=== PATIENT | female | born 1960 | race Caucasian/White ===

== ENCOUNTER → 2017-01-17 | Outpatient (CLI) | payer OTHER ==
[~2017-01-17] MED LIST: ALBU1AER9 INH; DICL75TA2 PO; FLNIN NAE; FLVHFA220 PO; HYZ/50125 PO; LORA10TA5 PO; MONT1TAB3 PO; OMEP40CA36 PO; OMEP40CA41 PO
--- NOTE | 2017-01-18 15:13 | MAMMOGRAPHY REPORT ---
BILATERAL DIGITAL SCREENING MAMMOGRAM TOMOSYNTHESIS WITH CAD: 01/17/2017 CLINICAL HISTORY: Routine screening. Patient has no complaints. TECHNIQUE: Breast tomosynthesis in addition to standard 2D mammography was performed. Current study was also evaluated with a Computer Aided Detection (CAD) system. COMPARISON: Comparison is made to exams dated: 11/15/2014 mammogram, 09/26/2013 mammogram, 09/21/2012 m ammogram, 09/02/2011 mammogram, 08/31/2011 mammogram, and 08/10/2010 mammogram - [facility] nter. BREAST COMPOSITION: The tissue of both breasts is almost entirely fatty. FINDINGS: There are scattered stable benign rim and round calcifications in the breasts. No suspicio us mass, architectural distortion or cluster of suspicious microcalcifications is seen. IMPRESSION: ACR BI-RADS CATEGORY 1: NEGATIVE There is no mammographic evidence of malignancy. A 1 year screening mammogram is recommended. The pa tient will receive written notification of the results. Approximately 10% of breast cancers are not detected with mammography. A negative mammographic report should not delay biopsy if a clinically suggestive mass is present. Wen Carmona M.D. ay/:01/17/2017 21:00:42 [employer]: Shira MENSAH(Black)([place])([place]), [facility] letter sent: Normal 1/2 BI-RADS Code: ACR BI-RADS Category 1: Negative
== END | disposition home or self-care (01) ==
LOC: C.MAMM 14:25
PROVIDERS: ATTEND Family Medicine
DX: Z12.31 Encounter for screening mammogram for malignant neoplasm of breast (principal)

== ENCOUNTER 2017-01-26 05:37 | Emergency (ER) | payer OTHER ==
[~2017-01-26] VITALS: Ht 157.5 cm; Wt 121.5 kg
[~2017-01-26 05:37] MED LIST changes: -FLVHFA220 PO; -OMEP40CA41 PO
[2017-01-26 05:42] VITALS: TEMP 36.7; Ht 157.5 cm; Wt 121.5 kg
[2017-01-26] MEDS ORDERED: EPINEPHRINE ADULT AUTO-INJECT 0.3 MG SYR IM STA (05:48)
[2017-01-26] MEDS ORDERED: DiphenhydrAMINE HCL 50 MG/ML VIAL IV STA (05:48)
[2017-01-26] MEDS ORDERED: RANITIDINE HCL 50 MG/100 ML D5W IV STA (05:48)
[2017-01-26 05:50] VITALS: O2SAT 97
[2017-01-26] MEDS ORDERED: DEXAMETHASONE SOD INJ 10 MG/ML VIAL IV ONE (06:00)
--- NOTE | 2017-01-26 06:21 | EMERGENCY ROOM VISIT NOTE ---
History First contact with patient: 05:44 Chief Complaint: ALLERGIC REACTION Stated Complaint: ALLERGIC REACTION-TROUBLE SWALLOWING, RED RASH History of Present Illness The patient is a 56 year old female who presents to the Emergency Room with complaints of allergic reaction for the past few days. Patient states she has been taking Flexeril night for the past 4 nights last week and then the next day she is working in the garden and developed a rash and itching to her chest. She went to the family care doctor on-call office and was given prednisone and advised to stop taking the Flexeril. The rash persists. She now complains of throat itchiness. Patient denies facial swelling, dysphagia, chest pain, abdominal pain, dyspnea, productive cough, vomiting. She is tolerating by mouth fluids and food. Review of Systems See HPI for pertinent positives & negatives. A total of 10 systems reviewed and were otherwise negative. Past Medical/Surgical History Medical Problems: (1) Acute bronchitis (2) Asthma (3) Romero's palsy (4) Benign hypertension (5) Bilateral tubal ligation (6) Gastroesophageal reflux disease (7) Laparoscopic cholecystectomy Social History Smoking Status: Never Smoker Marital Status: Housing Status: lives with family Occupation Status: employed Current/Historical Medications Scheduled Albuterol Sulfate (Proair Hfa), 2 PUFFS INH Q4HR PRN Diclofenac Sodium (Voltaren), 75 MG PO BIDM PRN Fluticasone Propionate (Flonase Nasal [place]), 2 SPRAYS VALENTÍN DAILY Hctz/Losartan (Hyzaar 12.5MG/50MG), 2 TAB PO DAILY Loratadine (Claritin), 10 MG PO DAILY PRN Montelukast Sodium (Singulair), 10 MG PO DAILY Omeprazole (Prilosec), 40 MG PO BID Physical Exam Vital Signs Date Time Temp Pulse Resp B/P (MAP) Pulse Ox O2 Delivery O2 Flow Rate FiO2 01/26/17 06:13 82 20 161/95 98 Room Air 01/26/17 05:50 97 Room Air 01/26/17 05:50 97 Room Air 01/26/17 05:42 36.7 92 20 175/111 95 Room Air Physical Exam VITALS: Vitals are noted on the nurse's note and reviewed by myself. Vital signs hypertensive. GENERAL: Pleasant female speaking in full sentences, in no acute distress, nondiaphoretic, well-developed well-nourished. SKIN: Anterior chest and neck erythematous and edematous that is blanchable most consistent with allergic reaction, The rest of the skin was without rashes , erythema, edema, or bruising. There is no tenting of the skin. Capillary reflex less than 2 seconds. HEAD: Normocephalic atraumatic. No facial edema. EARS: External auditory canals clear, tympanic membranes pearly lopez without erythema or effusion bilaterally. EYES: Pupils equal round and reactive to light and accommodation. Conjunctivae without injection, sclerae without icterus. Extraocular movements intact. NOSE: Patent, turbinates without inflammation or discharge. MOUTH: Mucous membranes moist. No edema noted Pharynx without erythema or exudate. Uvula midline. Airway patent. Tongue does not deviate. NECK: Supple without nuchal rigidity. No lymphadenopathy. No thyromegaly. Cervical spine is nontender. No JVD. HEART: Regular rate and rhythm LUNGS: Clear to auscultation bilaterally without wheezes, rales or rhonchi. No dullness to percussion. No retractions or accessory muscle use. ABDOMEN: Positive bowel sounds x 4. Normal tympanic percussion. Soft, nontender, without masses or organomegaly. Yepez sign negative. No guarding or rebound tenderness. MUSCULOSKELETAL: No muscle atrophy, erythema, or edema noted. NEURO: Patient was alert and oriented to person place and time. Normal sensation to light and sharp touch. No focal neurological deficits. Medical Decision & Procedures Medications Administered Medications (Trade) Dose Ordered Sig/Quoc Route Start Time Stop Time Status Last Admin Dose Admin Diphenhydramine HCl (Benadryl Inj) 50 mg NOW STAT IV 01/26/17 05:48 01/26/17 05:50 DC 01/26/17 05:54 50 MG Ranitidine HCl (zANTac IV) 50 mg NOW STAT IV 01/26/17 05:48 01/26/17 05:50 DC 01/26/17 05:55 50 MG Dexamethasone Sodium Phosphate (Decadron Inj) 10 mg NOW ONCE IV 01/26/17 06:00 01/26/17 06:01 DC 01/26/17 05:55 10 MG Epinephrine (Epipen) 0.3 mg NOW STAT IM 01/26/17 05:48 01/26/17 05:50 DC 01/26/17 05:55 0.3 MG ED Course Prior records/ancillary studies reviewed. Triage Nursing notes reviewed. Additional history obtained from family. The patient's history was concerning for possible allergic reaction. Differential diagnosis: Etiologies such as allergic reaction, anaphylaxis, urticaria, Gagnon-Paul syndrome, toxic epidermal necrolysis, erythema multiforme, cellulitis, as well as others were entertained. Physical examination: As above. ER treatment provided: Continuous cardiac monitoring Benadryl 50 mg IV Zantac 50 mg IV Decadron 10 mg IV On reassessment the patient felt better. Diagnostic interpretation by me: Deferred It appears the patient had an allergic reaction. The above treatment did well to reverse the symptoms. After prolonged monitoring and frequent reassessments the patient did very well and symptoms resolved. The patient was counseled on the spectrum of this disease process and told to avoid potential triggers. I gave my usual and customary discussion regarding this issue. By the evaluation outlined above emergent etiologies such as recurring anaphylaxis, anaphylatic shock, airway compromise, Gagnon-Paul syndrome, toxic epidermal necrolysis, erythema multiforme, infectious etiologies, as well as others were deemed relatively unlikely. The pt informed about the findings as listed above. All questions were answered and pleased with the treatment. Return instructions were outlined and the patient was discharged in stable condition. Outpatient prescription management: EpiPen Referral: The patient was referred back to primary care physician for follow-up in 2-3 days for a recheck of the current condition. or The patient was referred to Allergy/Immunology for further evaluation. Medical Decision as above Medication Reconcilliation Current Medication List: was personally reviewed by me Blood Pressure Screening Patient's blood pressure: Elevated blood pressure Impression Primary Impression: Allergic reaction Departure Information Dispostion Home / Self-Care Condition GOOD Referrals Frank Ramon M.D. (PCP) [facility] Additional Instructions DO NOT drive, drink alcohol, operate machinery, or perform dangerous activities today. You were given medications in the ER that can affect your ability to safely function or operate a vehicle. Epi-Pen: Use one injection as instructed for severe allergic reactions associated with shortness of breath, difficulty breathing, or throat or tongue swelling. If you use this injection call 911 or proceed immediately to the nearest Emergency Room. Continue Medrol Dosepak as directed from family care doctor Diphenhydramine(Benadryl) 25mg: use 25 to 50 mg every six hours for swelling, itching, or hives. This medication is sedating and will cause drowsiness. Avoid alcohol, operating machinery or dangerous equipment, working on ladders or roofs, DRIVING, or situations where being under the influence may be dangerous. Zantac 75: Take two pills twice a day along with Benadryl as needed for swelling , itching, or hives. Most people know this for its affect on the stomach, but it also acts similar to, but less potent than Benadryl for allergic reactions. Both the Benadryl and the Zantac are available [id number]. Continue current medications. Return to the emergency department for worsening of your rash, swelling of your face, lips, tongue, or throat, difficulty breathing, vomiting, or as needed. Follow-up with your primary care physician in 2 to 3 days for a recheck of your current condition. Problem Qualifiers Primary Impression: Allergic reaction Encounter type: initial encounter Qualified Codes: T78.40XA - Allergy, unspecified, initial encounter
[2017-01-26] MEDS ORDERED: FLVHFA220 PO (06:40)
[2017-01-26] MEDS ORDERED: OMEP40CA41 PO (06:40)
[2017-01-26 06:42] VITALS: BP 161/95; PULSE 82; O2SAT 98
== END 2017-01-26 06:43 | disposition home or self-care (01) ==
LOC: C.EDB 05:38
DX: T78.40XA Allergy, unspecified, initial encounter (principal); X58.XXXA Exposure to other specified factors, initial encounter; I10 Essential (primary) hypertension; J45.909 Unspecified asthma, uncomplicated; K21.9 Gastro-esophageal reflux disease without esophagitis; G51.0 Bell's palsy; Z90.49 Acquired absence of other specified parts of digestive tract; Z79.899 Other long term (current) drug therapy